=== PATIENT | female | born 1965 | race Caucasian/White ===

== ENCOUNTER → 2019-06-03 | Outpatient (CLI) | payer BC ==
[~2019-06-03] MED LIST: FERR134T PO; METO-93 PO; MULT-308 PO; TRIA1CAP3 PO; VITA1CAP PO
[2019-06-03 15:57] LABS: BASOPHILS # (AUTO) 0.03 x10^3/uL (0-0.1); BASOPHILS % (AUTO) 1 % (0-1); EOSINOPHILS # (AUTO) 0.16 x10^3/uL (0-0.4); EOSINOPHILS % (AUTO) 2 % (1-7); LYMPHOCYTES # (AUTO) 1.73 x10^3/uL (1-3.4); LYMPHOCYTES % (AUTO) 26 % (22-44); MD NO; MEAN CORPUSCULAR HGB CONC 33.3 g/dL (32.4-35.8); MEAN CORPUSCULAR VOLUME 87.1 fL (80-100); MONOCYTES # (AUTO) 0.57 x10^3/uL (0.2-0.8); MONOCYTES % (AUTO) 8 % (2-9); NEUTROPHILS # (AUTO) 4.28 x10^3/uL (1.8-6.8); NEUTROPHILS % (AUTO) 63 % (42-75); PLATELET COUNT 332 x10^3/uL (130-400); RED BLOOD COUNT 4.96 x10^6/uL (3.82-5.3); RED CELL DISTRIBUTION WIDTH 15.6 % (9.6-15.2)
[2019-06-03 16:12] LABS: ANION GAP 5 mmol/L (5-15); CHLORIDE 106 mmol/L (98-107)
[2019-06-03 16:15] LABS: ALANINE AMINOTRANSFERASE 27 U/L (12-78); ALKALINE PHOSPHATASE 73 U/L (45-117); BILIRUBIN,TOTAL 0.4 mg/dL (0.2-1.0); CREATININE 0.73 mg/dL (0.55-1.02); TOTAL PROTEIN 7.8 g/dL (6.4-8.2)
== END | disposition home or self-care (01) ==
LOC: STAR 14:48
PROVIDERS: ATTEND Obstetrics & Gynecology Gynecology
DX: Z01.818 Encounter for other preprocedural examination (principal); N95.0 Postmenopausal bleeding; R10.2 Pelvic and perineal pain; M47.814 Spondylosis without myelopathy or radiculopathy, thoracic region; R00.1 Bradycardia, unspecified
CPT/HCPCS: 36415; 71046; 80053; 85025; 93005

== ENCOUNTER 2019-06-13 11:18 | Day surgery (SDC) | payer BC ==
[~2019-06-13] VITALS: Ht 172.7 cm; Wt 102.2 kg
[~2019-06-13 11:18] MED LIST changes: +BUPIVACAINE/PF-EPI 0.25% 1:200K ONE; +FLUORESCEIN SODIUM 500 MG/5 ML ONE; +INDIGO CARMINE 0.8%, 5ML ONE
[2019-06-13 11:43] VITALS: BP 107/74
[2019-06-13] MEDS ORDERED: LACTATED RINGERS 1,000 ML IV SCH (11:46)
[2019-06-13] MEDS ORDERED: MIDAZOLAM 1 MG/ML, 2ML ONE (11:49)
[2019-06-13] MEDS ORDERED: FENTANYL PF 250 MCG/5ML ONE (11:50)
[2019-06-13] MEDS ORDERED: SUGAMMADEX 200 MG/2 ML IVPush ONE (12:31)
[2019-06-13] MEDS ORDERED: CEFAZOLIN 1,000 MG ONE (12:31)
[2019-06-13] MEDS ORDERED: KETOROLAC 30 MG/1 ML ONE (12:31)
[2019-06-13] MEDS ORDERED: ONDANSETRON 2MG/ML, 2ML ONE (12:31)
[2019-06-13] MEDS ORDERED: DEXAMETHASONE 4 MG/ML, 1ML ONE (12:31)
[2019-06-13] MEDS ORDERED: PROPOFOL 10 MG/ML, 20ML ONE (12:31)
[2019-06-13] MEDS ORDERED: ROCURONIUM 10 MG/ML,10ML ONE (12:31)
[2019-06-13] MEDS ORDERED: SUCCINYLCHOLINE 20 MG/ML, 10ML ONE (12:31)
[2019-06-13] MEDS ORDERED: DIAZEPAM 5 MG/ML, 2ML IV PRN ×2 (14:00)
[2019-06-13] MEDS ORDERED: KETOROLAC 30 MG/1 ML IV PRN ×2 (14:00→16:00)
[2019-06-13] MEDS ORDERED: METOCLOPRAMIDE 5 MG/ML, 2ML IV PRN (14:00)
[2019-06-13] MEDS ORDERED: LABETALOL 5MG/ML, 20ML IV PRN (14:00)
[2019-06-13] MEDS ORDERED: FENTANYL PF 100 MCG/2ML IV PRN (14:00)
[2019-06-13] MEDS ORDERED: OXYcodone 5 MG/5 ML ORAL.SOL UDC PO PRN (14:00)
[2019-06-13] MEDS ORDERED: ONDANSETRON 2MG/ML, 2ML IVPush PRN (14:00)
[2019-06-13] MEDS ORDERED: HYDROmorphone 1 MG/ML, 1ML INJ IV PRN (14:00)
[2019-06-13] MEDS ORDERED: MEPERIDINE/PF 25MG/0.5ML IVPush PRN (14:00)
[2019-06-13] MEDS ORDERED: ALBUTEROL SULFATE 2.5 MG/3 ML NPPB PRN (14:00)
[2019-06-13] MEDS ORDERED: hydrALAzine 20 MG/ML, 1ML IV PRN (14:00)
[2019-06-13] MEDS ORDERED: PROMETHAZINE 25 MG/ML, 1ML IV PRN (14:00)
[2019-06-13] MEDS ORDERED: OXYcodone 5 MG/5 ML ORAL.SOL UDC ONE (14:41)
[2019-06-13] MEDS ORDERED: MEPERIDINE/PF 25MG/ML,1ML ONE (14:41)
[2019-06-13 15:12] VITALS: BP 116/66
[2019-06-13] MEDS ORDERED: ONDANSETRON 2MG/ML, 2ML IV PRN (16:00)
[2019-06-13] MEDS ORDERED: morphine SULFATE 10 MG/ML, 1ML IV PRN (16:00)
[2019-06-13] MEDS ORDERED: DIPHENHYDRAMINE 50 MG/ML, 1ML IVPush PRN (18:30)
[2019-06-13] MEDS: DIPHENHYDRAMINE 25 MG CAPSULE PO PRN (18:57)
[2019-06-13] MEDS: OXYcodone/APAP 5/325MG TABLET PO PRN (18:58)
[2019-06-13 19:10] VITALS: BP 120/80
[2019-06-13] MEDS: LACTATED RINGERS 1,000 ML IV SCH (20:00)
[2019-06-13] MEDS: DOCUSATE 100 MG CAPSULE PO SCH (21:00)
[2019-06-14 00:43] VITALS: BP 128/89
[2019-06-14] MEDS: DIPHENHYDRAMINE 25 MG CAPSULE PO PRN ×2 (00:53→08:25)
[2019-06-14] MEDS: OXYcodone/APAP 5/325MG TABLET PO PRN ×2 (00:53→08:25)
[2019-06-14] MEDS ORDERED: ENOXAPARIN 40 MG/0.4 ML SQ SCH (02:00)
[2019-06-14] MEDS: LACTATED RINGERS 1,000 ML IV SCH (03:22)
[2019-06-14 05:20] VITALS: BP 130/78
[2019-06-14] MEDS ORDERED: METOPROLOL SUCCINATE 50 MG TAB.ER.24H PO SCH (06:00)
[2019-06-14 08:10] VITALS: BP 155/89
[2019-06-14] MEDS: DOCUSATE 100 MG CAPSULE PO SCH (08:24)
[2019-06-14] MEDS ORDERED: MULTIVITS,STRESS FORMULA 1 TABLET PO SCH (09:00)
[2019-06-14] MEDS ORDERED: MULTIVITAMINS/MINERALS TABLET PO SCH (09:00)
[2019-06-14] MEDS ORDERED: FERROUS SULFATE 325 MG TABLET PO SCH (09:00)
[2019-06-14] MEDS ORDERED: TRIAMTERENE-HCTZ 37.5/25 MG TABLET PO SCH (09:00)
== END 2019-06-14 09:42 | disposition home or self-care (01) ==
LOC: OUT 11:18 → 4NE 14:58 → UNDOADMIN 16:05 → OUT 16:05 → 4NE 16:05 → DCLOUNGE 06-14 09:39 → OUT 06-14 09:42 → UNDODISIN 06-14 09:42
PROVIDERS: ATTEND Obstetrics & Gynecology Gynecology
DX: N93.9 Abnormal uterine and vaginal bleeding, unspecified (principal); D25.9 Leiomyoma of uterus, unspecified; N88.8 Other specified noninflammatory disorders of cervix uteri; N95.0 Postmenopausal bleeding; R10.2 Pelvic and perineal pain; Z79.899 Other long term (current) drug therapy; Z98.84 Bariatric surgery status; Z98.890 Other specified postprocedural states; Z82.49 Family history of ischemic heart disease and other diseases of the circulatory system; Z82.3 Family history of stroke
CPT/HCPCS: 58571; 88307; J0330; J0690; J1100; J1650; J1885; J2250; J2405; J2704; J3010; J7120; Q0163; S2900; G0378